=== PATIENT | female | born 1940 | race Caucasian/White ===

== ENCOUNTER → 2016-03-11 | Outpatient (CLI) | payer OTHER, BC ==
[~2016-03-11] MED LIST: ACET-1311 PO; AMOX500C3 PO; CHOL1000 PO; CLBCR15 EXT; CLTP PO; CMD3 PO; COLE625T PO; DIAZ-165 PO; EZET10TA63 PO; KRIL1CAP7 PO; LACT3000 PO; LANS30CA63 PO; MISCCAP80 PO; MULT-506 PO; PRT/20 PO; RSTOPS OP; SYN50 PO; TRAM-10 PO; WARF3TAB6 PO; [UNRECOGNIZED DRUG - CODE] TOP
[2016-03-11 13:09] LABS: INR 1.5 (0.9-1.1); PROTHROMBIN TIME (PATIENT) 16.8 SECONDS (9.0-12.0)
[2016-03-11 13:53] LABS: CHOLESTEROL/HDL RATIO 5.9; THYROID STIMULATING HORMONE 1.1 uIu/ml (0.300-4.500)
== END | disposition home or self-care (01) ==
LOC: C.LAB 12:08
PROVIDERS: ATTEND Family Medicine
DX: S32.029A Unspecified fracture of second lumbar vertebra, initial encounter for closed fracture (principal); X58.XXXA Exposure to other specified factors, initial encounter; E78.5 Hyperlipidemia, unspecified; E03.9 Hypothyroidism, unspecified; I26.99 Other pulmonary embolism without acute cor pulmonale; Z51.81 Encounter for therapeutic drug level monitoring; Z79.01 Long term (current) use of anticoagulants

== ENCOUNTER → 2016-03-26 | Outpatient (CLI) | payer BC ==
[~2016-03-26] MED LIST changes: -DIAZ-165 PO; -LANS30CA63 PO
--- NOTE | 2016-03-26 12:05 | DIAGNOSTIC IMAGING REPORT ---
LUMBAR SPINE 5 VIEWS CLINICAL HISTORY: Followup burst fracture of L2. FINDINGS: Five views of lumbar spine are correlated with CT scan of lumbar spine dated 01/16/2016. The skeletal structures are osteopenic. There is a moderate to severe compression deformity of L2 at the site of the previously characterized burst fracture. Vertebroplasty cement is in place. Retropulsed fragments are again noted and similar to previous. These are retropulsed by a maximum of 8 mm and likely cause acquired compromise of the central canal. Again seen are changes from laminectomy and posterior fusion from L1 to L3, with interpedicular screws present at both L1 and L3. The orthopedic hardware appears intact. Vertebral body height is otherwise maintained throughout the lumbar spine. The transverse processes appear intact. There is no evidence of spondylolysis. No acute fracture is identified. Facet arthropathy is noted in the lower lumbar region. Moderate degenerative disc space narrowing is seen at L4-L5 and L5-S1. The sacrum and bony pelvis are intact as visualized. Sclerotic change is noted in the sacroiliac joints. Postoperative change is partially visualized in the right proximal humerus. There is a nonobstructed abdominal bowel gas pattern. Moderate atherosclerotic calcification is noted in the abdominal aorta. A calcified structure in the right upper quadrant is consistent with calcification of the costal cartilage when correlated with prior CT scans. IMPRESSION: 1. There is a moderate to severe compression deformity of L2 at the site of the previously characterized burst fracture with evidence of interval vertebroplasty. Retropulsed fragments are similar in alignment to previous. 2. Postoperative changes from L1 to L3 spinal fusion as above. The orthopedic hardware appears intact. 3. No acute fracture is seen. 4. Additional changes as above. Dictated: 03/26/2016 11:27 AM Transcribed: 03/26/2016 12:04 PM [facility] Electronically signed by: Javier Fu M.D. 03/26/2016 12:06 PM Dictated Date/Time: 03/26/2016 11:27 AM
== END | disposition home or self-care (01) ==
LOC: C.RADBC 10:38
PROVIDERS: ATTEND Neurological Surgery
DX: S32.022D Unstable burst fracture of second lumbar vertebra, subsequent encounter for fracture with routine healing (principal); M54.16 Radiculopathy, lumbar region; X58.XXXD Exposure to other specified factors, subsequent encounter; M53.86 Other specified dorsopathies, lumbar region; Z98.1 Arthrodesis status

== ENCOUNTER → 2016-04-13 | Outpatient (CLI) | payer OTHER, BC ==
--- NOTE | 2016-04-13 11:28 | DIAGNOSTIC IMAGING REPORT ---
CT LUMBAR SPINE WITHOUT CT DOSE: 832.05 mGy.cm CLINICAL HISTORY: Unstable L2 fracture. Back pain. TECHNIQUE: Helical images were acquired in transverse plane. Reformatted sagittal and coronal images were reviewed. CONTRAST: No contrast was administered COMPARISON STUDY: None. FINDINGS: L1-2 level: There is no evidence of significant disc bulge or focal herniation. There is no evidence of spinal or foraminal stenosis. There is an L2 burst fracture with retropulsion. There are postsurgical changes of a posterior laminectomy. There is posterior pedicle screw fixation with pedicle screws at the L1 and L3 levels. L2-3 level: There is no evidence of significant disc bulge or focal herniation. There is no evidence of spinal or foraminal stenosis. L3-4 level: There is a mild circumferential disc bulge. There is minor spinal stenosis. There is no significant foraminal narrowing L4-5 level: There is a circumferential disc bulge. There is moderate spinal stenosis. There is no significant foraminal narrowing. L5-S1 level: There is no evidence of significant disc bulge or focal herniation. There is no evidence of spinal or foraminal stenosis. IMPRESSION: 1. L2 burst fracture. Since the prior CT scan, the patient has undergone a vertebroplasty. There is also postsurgical changes of an L2 laminectomy with L1 and L3 pedicle screw fixation. The degree of retropulsion and vertebral body height remain similar to the preceding study 2. Spondylitic changes with a disc bulge and moderate spinal stenosis at the L4-5 level. Electronically signed by: Nando Villatoro M.D. 04/13/2016 11:26 AM Dictated Date/Time: 04/13/2016 11:17 AM
== END | disposition home or self-care (01) ==
LOC: C.CTS 10:54
PROVIDERS: ATTEND Neurological Surgery
DX: S32.022D Unstable burst fracture of second lumbar vertebra, subsequent encounter for fracture with routine healing (principal); X58.XXXD Exposure to other specified factors, subsequent encounter; Z98.1 Arthrodesis status; M51.26 Other intervertebral disc displacement, lumbar region; M99.73 Connective tissue and disc stenosis of intervertebral foramina of lumbar region

== ENCOUNTER → 2016-04-28 | Outpatient (CLI) | payer BC ==
[2016-04-28 20:25] LABS: MANUAL MICROSCOPIC REQUIRED? YES; URINE APPEARANCE SL CLOUDY (CLEAR); URINE BILIRUBIN NEG (NEG); URINE COLOR YELLOW; URINE NITRITE NEG (NEG); URINE PH 5.5 (4.5-7.5); URINE SPECIFIC GRAVITY 1.025 (1.000-1.030); UROBILINOGEN NEG (NEG)
[2016-04-28 20:31] LABS: REVIEW REQ? NO
[2016-04-28 20:42] LABS: URINE BACTERIA 4+ (NEG)
[2016-04-28 20:43] LABS: URINE RBC 0-4 /hpf (0-4)
== END | disposition home or self-care (01) ==
LOC: C.LABSPEC 17:32
PROVIDERS: ATTEND Family Medicine
DX: N39.0 Urinary tract infection, site not specified (principal)

== ENCOUNTER → 2016-05-07 | Outpatient (CLI) | payer BC ==
[2016-05-10 15:40] LABS: O&P GIARDIA AG NOT DETECTED (NOT DETECTED)
== END | disposition home or self-care (01) ==
LOC: C.LAB 12:44
PROVIDERS: ATTEND Family Medicine
DX: R19.7 Diarrhea, unspecified (principal)

== ENCOUNTER → 2016-05-20 | Outpatient (CLI) | payer BC ==
--- NOTE | 2016-05-20 16:28 | MAMMOGRAPHY REPORT ---
BILATERAL DIGITAL SCREENING MAMMOGRAM WITH CAD: 05/20/2016 CLINICAL HISTORY: Routine screening. Patient has no complaints. TECHNIQUE: Current study was also evaluated with a Computer Aided Detection (CAD) system. Bilatera l CC and MLO views were obtained. COMPARISON: Comparison is made to exams dated: 05/20/2015 mammogram, 05/14/2014 mammogram, 04/24/2013 m ammogram, 03/23/2012 mammogram, 03/22/2011 mammogram, and 03/19/2010 mammogram - [facility]. BREAST COMPOSITION: There are scattered areas of fibroglandular density in both breasts. FINDINGS: No suspicious masses, calcifications, or areas of architectural distortion are noted in e ither breast. There has been no significant interval change compared to prior exams. Biopsy marker clips are again noted bilaterally. Scattered bilateral benign-appearing calcifications and bilatera l asymmetries are not significantly changed. Note that the right MLO view is somewhat suboptimal du e to difficulties with patient positioning due to a prior shoulder surgery. IMPRESSION: ACR BI-RADS CATEGORY 2: BENIGN There is no mammographic evidence of malignancy. A 1 year screening mammogram is recommended. The p atient will receive written notification of the results. Approximately 10% of breast cancers are not detected with mammography. A negative mammographic repor t should not delay biopsy if a clinically suggestive mass is present. Cassy Valle M.D. ah/:05/20/2016 16:14:21 Operations And Maintenance Manager: Anahi Guthrie RT(R)(M), [facility] letter sent: Normal 1/2 BI-RADS Code: ACR BI-RADS Category 2: Benign
== END | disposition home or self-care (01) ==
LOC: C.MAMM 11:42
PROVIDERS: ATTEND Family Medicine
DX: Z12.31 Encounter for screening mammogram for malignant neoplasm of breast (principal); Z51.81 Encounter for therapeutic drug level monitoring; Z79.01 Long term (current) use of anticoagulants; I26.99 Other pulmonary embolism without acute cor pulmonale

== ENCOUNTER → 2016-06-17 | Outpatient (CLI) | payer BC | END | disposition home or self-care (01) | LOC: C.LAB 10:31 | PROVIDERS: ATTEND Family Medicine | DX: E03.9 Hypothyroidism, unspecified (principal); L65.9 Nonscarring hair loss, unspecified ==

== ENCOUNTER → 2016-11-01 | Outpatient (CLI) | payer BC | END | disposition home or self-care (01) | LOC: C.PATHSPEC 17:46 | PROVIDERS: ATTEND Dermatology | DX: L82.1 Other seborrheic keratosis (principal) ==

== ENCOUNTER → 2017-06-28 | Outpatient (CLI) | payer BC ==
--- NOTE | 2017-06-29 14:21 | MAMMOGRAPHY REPORT ---
BILATERAL DIGITAL SCREENING MAMMOGRAM TOMOSYNTHESIS WITH CAD: 06/28/2017 CLINICAL HISTORY: Routine screening. Patient has no complaints. TECHNIQUE: Breast tomosynthesis in addition to standard 2D mammography was performed. Current study was also evaluated with a Computer Aided Detection (CAD) system. COMPARISON: Comparison is made to exams dated: 05/20/2016 mammogram, 05/20/2015 mammogram, 05/14/2014 ma mmogram, 04/24/2013 mammogram, 03/23/2012 mammogram, and 03/22/2011 mammogram - [facility]. BREAST COMPOSITION: There are scattered areas of fibroglandular density in both breasts. FINDINGS: There is evidence of prior bilateral reduction mammoplasty. There are stable ribbon-shaped biopsy marker clips in each breast. A stable focal asymmetries in the superior left breast. Chao us scattered benign rim calcifications and mild vascular calcification bilaterally. No new suspiciou s mass, architectural distortion or cluster of microcalcifications is seen. IMPRESSION: ACR BI-RADS CATEGORY 1: NEGATIVE There is no mammographic evidence of malignancy. A 1 year screening mammogram is recommended. The pa tient will receive written notification of the results. Approximately 10% of breast cancers are not detected with mammography. A negative mammographic report should not delay biopsy if a clinically suggestive mass is present. Tatyana Cameron M.D. ay/:06/28/2017 14:05:44 Wood Molder: Paige RANGEL)(Saul), [facility] letter sent: Normal 1/2 BI-RADS Code: ACR BI-RADS Category 1: Negative
== END | disposition home or self-care (01) ==
LOC: C.MAMM 11:02
PROVIDERS: ATTEND Family Medicine
DX: Z12.31 Encounter for screening mammogram for malignant neoplasm of breast (principal)

== ENCOUNTER 2020-09-05 09:02 | Inpatient (IN) ==
--- NOTE | 2020-09-05 09:59 | Electrocardiogram Report ---
Test Reason : Blood Pressure : / mmHG Vent. Rate : 062 BPM Atrial Rate : 062 BPM P-R Int : 170 ms QRS Dur : 136 ms QT Int : 442 ms P-R-T Axes : 045 -70 091 degrees QTc Int : 448 ms Sinus rhythm with marked sinus arrhythmia Left axis deviation Left ventricular hypertrophy with QRS widening Abnormal ECG When compared with ECG of 28-APR-2015 07:11, No significant change was found Confirmed by Heber Zurita ([id number]) on 09/05/2020 9:58:53 AM Referred By: Confirmed By:Heber Zurita
[2020-09-05 10:04] LABS: Hemoglobin 13.4 g/dL (12.0-16.0); Mean Corpuscular Hemoglobin 28.2 pg (25-34); Mean Corpuscular Hgb Conc 32.7 g/dL (32-36); Mean Corpuscular Volume 86.3 fL (80-100); Mean Platelet Volume 8.8 fL (7.4-10.4); Platelet Count 148 K/uL (130-400); RDW Coefficient of Variation 14.7 % (11.5-14.5); RDW Standard Deviation 46.2 fL (36.4-46.3); Red Blood Count 4.75 M/uL (4.2-5.4); White Blood Count 34.43 K/uL (4.8-10.8)
[2020-09-05 10:22] LABS: Albumin Level 3.7 gm/dl (3.4-5.0); BUN Creatinine Ratio 15.9 (10-20); Calcium 9.2 mg/dl (8.5-10.1); Creatinine Clr Calc Pharmacy 44.5 ml/min; Est GFR (African American) 63.1 ml/min; Est GFR (Non-African American) 54.5 ml/min
[2020-09-05 10:23] LABS: INR 2.1 (0.9-1.1); Partial Thromboplastin Ratio 1.2; Partial Thromboplastin Time 30.5 Seconds (21.0-31.0)
[2020-09-05 10:41] LABS: Basophils % (auto) 0.6 %; Eosinophils # (auto) 0.09 K/uL (0-0.5); Eosinophils % (auto) 0.3 %; Immature Granulocytes # (auto) 0.05 K/uL (0.00-0.02); Immature Granulocytes % (auto) 0.1 %; Lymphocytes # (auto) 27.85 K/uL (1.2-3.4); Lymphocytes % (auto) 80.9 %; Monocytes % (auto) 3.2 %; Neutrophils # (auto) 5.14 K/uL (1.4-6.5); Neutrophils % (auto) 14.9 %; Ovalocytes 1+; Smudge Cells Present
[2020-09-05 10:42] LABS: Albumin Globulin Ratio 1.1 (0.9-2); Bilirubin,Total 0.5 mg/dl (0.2-1); Globulin 3.2 gm/dl (2.5-4.0); Total Protein 6.9 gm/dl (6.4-8.2); Troponin I 0.077 ng/ml (0-0.045)
--- NOTE | 2020-09-05 10:57 | XRay Report ---
XR chest 1V portable CLINICAL HISTORY: Chest Pain COMPARISON STUDY: Chest CT December 06, 2017. FINDINGS: Lung volumes are normal. Lungs are clear. There is no pneumothorax or pleural effusion. Car diac size is normal. Mediastinal contours are normal. There is no evidence for pulmonary edema. Proxi mal right humeral internal fixation is incidentally noted. IMPRESSION: No acute cardiopulmonary findings. ACT 112: Negative or not required by law. Electronically signed by: Rikki Clifton M.D. 09/05/2020 10:55 AM
--- NOTE | 2020-09-05 11:12 | Emergency Department Note ---
History of Present Illness General Chief complaint: Chest Pain Stated complaint: CHEST PAIN, BACK PAIN, WEAKNESS Time Seen by Provider: 09/05/20 10:48 Source: patient and family ( who is at the bedside) Mode of arrival: ambulatory Limitations: no limitations History of Present Illness Maximum Pain Intensity: 5 This patient is a 79-year-old female comes in after having chest discomfort. She has been having this for about 3 days. She said she started off with a diarrheal illness but that is resolved. She states that is mostly right-sided but now is more central she has been belching a lot. They did switch her dosing of GERD meds around. Since about 3 in the morning its been more constant and does radiate to her back she has been taking Tums which was helping but now is not. She denies that she is really have any pain at present but says is just a mild discomfort and declined any medications for it. No pain in the arm. No shortness of breath. No pleurisy. No fever chills or cough she did have the Covid vaccine x2. No lower extremity pain or swelling with exception of a recent left ankle surgery/injury that she has a splint on for. No history of cardiac disease. She does have a history of CLL as well as PE. Home Medications Medication Instructions Recorded Confirmed Type calcium carbonate 600 mg(1,500 1 tab PO BID17 11/01/17 09/05/20 History mg)-vitamin D3 800 unit chewable tablet (Caltrate 600 plus D) hydrochlorothiazide 12.5 mg tablet 12.5 mg PO QAM 09/04/19 09/05/20 History olmesartan 5 mg tablet (Benicar) 10 mg PO DAILY@1500 tab 05/08/20 09/05/20 History hydroxychloroquine 200 mg tablet 200 mg PO DAILY@1500 06/16/20 09/05/20 History (Plaquenil) omega-3 fatty acids 1,000 mg 2,000 mg PO BID cap 08/27/20 09/05/20 History capsule (Fish Oil Concentrate) colesevelam 625 mg tablet (WelChol) 1,250 mg PO DAILY@1500 09/05/20 09/05/20 History cyclosporine 0.05 % eye drops in a 1 drp OPB BID 09/05/20 09/05/20 History dropperette (Restasis) diclofenac sodium 1 % topical gel 2 g TOPICAL QID PRN 09/05/20 09/05/20 History (Voltaren Arthritis Pain) levothyroxine 50 mcg tablet 50 mcg PO QDB 09/05/20 09/05/20 History (Levoxyl) pantoprazole 20 mg tablet,delayed 20 mg PO QDB 09/05/20 09/05/20 History release (Protonix) warfarin 3 mg tablet (Jantoven) See Rx Instructions PO UD 09/05/20 09/05/20 History Allergies Allergy/AdvReac Type Severity Reaction Status Date / Time niacin Allergy Intermediate SHORTNESS Verified 09/05/20 11:44 OF BREATH adhesive Allergy Mild ITCHING Verified 09/05/20 11:44 aspirin Allergy Unknown stomach raw Verified 09/05/20 11:44 Sulfa (Sulfonamide Allergy Unknown . Verified 09/05/20 11:44 Antibiotics) lactose AdvReac Unknown LACTOSE Verified 09/05/20 11:44 INTOLERANT oxycodone AdvReac Unknown vomiting Verified 09/05/20 11:44 Past Med/Surg History Medical History Acne rosacea, erythematous telangiectatic type Chronic lymphocytic leukemia History of pulmonary embolism History of vertebral fracture Hyperlipidemia Hypothyroidism Psoriasiform dermatitis Pulmonary embolism on right Surgical History H/O arthroscopic knee surgery H/O bilateral breast reduction surgery H/O knee surgery H/O shoulder surgery "R rotator cuff" History of cholecystectomy History of partial hysterectomy History of tonsillectomy History of ventral hernia repair Hx of cataract surgery Hx of tonsillectomy Hx of total knee arthroplasty "bilateral Dr. Aguilar" S/P wrist surgery Family History Mother Gallbladder disease Cardiac disorder Hypertension Kidney disease Kidney stones Lung disease Father Gallbladder disease Hypertension Cardiac disorder Kidney disease Prostate cancer Urinary bladder cancer Diabetes Myocardial infarction Sister Gallbladder disease Hypertension Diabetes Depression Brother Cardiac disorder Hypertension Myocardial infarction Son Hypertension Grandmother Breast cancer Denies family history of Ovarian cancer Colorectal cancer Social History Smoking Status: Never smoker Hx Alcohol Use: Yes Alcohol type: beer and wine Alcohol Intake Frequency: Monthly or Less Hx Substance Use: No Preferred Language: Turkish Communication Ability: Effective Visual Impairment: No Limitations Hearing Ability: Normal marital status: Current Living Situation: Spouse current occupational status: retired Feels Safe at Home: Yes Childhood Exposure to Second-Hand Smoke: Yes Dental Care, Regularly: Yes Physical Activity Frequency: Does not Exercise Seatbelt Use: always Sunscreen Use: No Review of Systems A total of 10 systems reviewed and were otherwise negative Physical Exam Vital Signs Vital Signs - 24 hr 09/05/20 09:05 09/05/20 10:39 09/05/20 11:02 Temperature 36.4 C L Temperature Source Temporal Artery Scan Pulse Rate 63 65 Pulse Rate from SpO2 Sensor 64 Respiratory Rate 22 18 Respiratory Effort / Characteristics Non-Labored Respiratory Depth Normal Respiratory Pattern Regular Blood Pressure 142/68 H 161/86 H Blood Pressure Mean 92 111 Pulse Oximetry 97 95 Oxygen Delivery Method Room Air Room Air Sepsis Recent Fever Within 48 Hours No Sepsis New/Unexplained Change in Mental Status No Sepsis Action Taken by Nursing No Action Required 09/05/20 11:04 09/05/20 12:40 09/05/20 13:00 Temperature Temperature Source Pulse Rate 60 64 Pulse Rate from SpO2 Sensor 60 61 Respiratory Rate 19 22 Respiratory Effort / Characteristics Respiratory Depth Respiratory Pattern Blood Pressure 182/97 H 166/66 H Blood Pressure Mean 125 99 Pulse Oximetry 99 98 Oxygen Delivery Method Room Air Sepsis Recent Fever Within 48 Hours Sepsis New/Unexplained Change in Mental Status Sepsis Action Taken by Nursing 09/05/20 13:31 09/05/20 14:02 09/05/20 14:30 Temperature Temperature Source Pulse Rate 58 L 52 L 68 Pulse Rate from SpO2 Sensor 56 L 52 L 59 L Respiratory Rate 19 20 18 Respiratory Effort / Characteristics Respiratory Depth Respiratory Pattern Blood Pressure 155/81 H Blood Pressure Mean 105 Pulse Oximetry 97 96 92 Oxygen Delivery Method Sepsis Recent Fever Within 48 Hours Sepsis New/Unexplained Change in Mental Status Sepsis Action Taken by Nursing General: Well developed well nourished older female who appears in no acute distress, breathing comfortably on room air. Normal speech HEENT: Normal cephalic atraumatic. Pupils are equal round and reactive to light. Extraocular movements are intact. Oropharynx is pink with moist mucous membranes. No swelling of the mouth lips or tongue. Neck: Supple with a midline trachea. No meningeal signs or stiffness, no JVD or bruits. No Stridor. Chest: Clear to auscultation bilaterally. No wheezes or rhonchi. No increased work of breathing. Heart: Regular rate and rhythm without murmurs or gallops. Abdomen: Soft nontender, nondistended without rebound guarding or rigidity. Extremities: No cyanosis clubbing or edema. No calf tenderness or assymetry Spine/Back. Non tender to palpation. No CVA tenderness Skin: Good turgor without rashes. Neurologic exam: Cranial nerves two through 12 are intact. Motor and sensation are intact and symmetrical throughout. Course Administered Medications Discontinued Medications Al Hydrox/Mg Hydrox/Simethicone (Gi Cocktail Ed Use) 1 dose PO NOW STA Stop: 09/05/20 12:06 Last Admin: 09/05/20 12:41 Dose: 1 dose Documented by: [id number] Fentanyl Citrate (Fentanyl Citrate 100 Mcg/2 Ml Vial) Confirm Administered Dose 100 mcg .ROUTE .STK-MED ONE Stop: 09/05/20 14:38 Last Admin: 09/05/20 16:08 Dose: 50 mcg Documented by: [id number] Heparin Sodium (Porcine) (Heparin (Porcine) 1000 Unit/Ml 10 Ml ([facility] Use Only)) Confirm Administered Dose 10,000 units .ROUTE .STK-MED ONE Stop: 09/05/20 14:38 Last Admin: 09/05/20 16:08 Dose: 9,000 units Documented by: [id number] Heparin Sodium/Sodium Chloride (Heparin In Nss Infusion 1000 Unit/500 Ml (2 U/Ml) Bag) Confirm Administered Dose 3,000 units IV .STK-MED ONE Stop: 09/05/20 14:38 Last Admin: 09/05/20 16:09 Dose: 3,000 units Documented by: [id number] Hydrochlorothiazide (Hydrochlorothiazide 25 Mg Tab) 12.5 mg PO NOW STA Stop: 09/05/20 11:59 Last Admin: 09/05/20 12:47 Dose: 12.5 mg Documented by: [id number] Ioversol (Optiray 320 125ml) 120 ml IV ONCE ONE Stop: 09/05/20 11:25 Last Admin: 09/05/20 11:24 Dose: 120 ml Documented by: [id number] Midazolam HCl (Midazolam Hcl 1 Mg/Ml 2ml Vial) Confirm Administered Dose 2 mg .ROUTE .STK-MED ONE Stop: 09/05/20 14:38 Last Admin: 09/05/20 16:09 Dose: 2 mg Documented by: [id number] Nicardipine HCl (Nicardipine Hcl Inj 2.5 Mg/Ml 10 Ml Amp) Confirm Administered Dose 25 mg .ROUTE .STK-MED ONE Stop: 09/05/20 14:38 Last Admin: 09/05/20 16:09 Dose: 0.1 mg Documented by: [id number] Nitroglycerin/Dextrose (Nitroglycerin/D5w 100mcg/Ml 20ml Syr) Confirm Administered Dose 2,000 mcg .ROUTE .STK-MED ONE Stop: 09/05/20 14:38 Last Admin: 09/05/20 16:10 Dose: 100 mcg Documented by: [id number] Medical Decision Making Differential Diagnosis Acute coronary syndrome, GERD, PE, aortic pathology, arrhythmia, Covid, electrolyte or metabolic abnormality, musculoskeletal Medical Records Attestation: I reviewed the patient's medical records. Home Medications Current Medication List: was personally reviewed by me Laboratory Data Attestation: I reviewed the patient's lab results. Result diagrams: 09/05/20 09:52 09/05/20 09:52 Lab Results 09/05/20 09/05/20 09/05/20 Range/Units 09:52 09:52 09:52 WBC 34.43 H* (4.8-10.8) K/uL RBC 4.75 (4.2-5.4) M/uL Hgb 13.4 (12.0-16.0) g/dL Hct 41.0 (37-47) % MCV 86.3 (80-100) fL MCH 28.2 (25-34) pg MCHC 32.7 (32-36) g/dL RDW Std Deviation 46.2 (36.4-46.3) fL RDW Coeff of Rose 14.7 H (11.5-14.5) % Plt Count 148 (130-400) K/uL MPV 8.8 (7.4-10.4) fL Immature Gran % (Auto) 0.1 % Neut % (Auto) 14.9 % Lymph % (Auto) 80.9 % Orange % (Auto) 3.2 % Eos % (Auto) 0.3 % Baso % (Auto) 0.6 % Neut # (Auto) 5.14 (1.4-6.5) K/uL Lymph # (Auto) 27.85 H (1.2-3.4) K/uL Orange # (Auto) 1.10 H (0.11-0.59) K/uL Eos # (Auto) 0.09 (0-0.5) K/uL Baso # (Auto) 0.20 (0-0.2) K/uL Immature Gran # (Auto) 0.05 H (0.00-0.02) K/uL Smudge Cells Present Ovalocytes 1+ PT 20.0 H (9.0-12.0) Seconds INR 2.1 H (0.9-1.1) APTT 30.5 (21.0-31.0) Seconds PTT Ratio 1.2 Activ Coag Time Kaolin (94-140) SECONDS Sodium 140 (136-145) mmol/L Potassium 4.0 (3.5-5.1) mmol/L Chloride 108 H (98-107) mmol/L Carbon Dioxide 27 (21-32) mmol/L Anion Gap 5.0 (3-11) BUN 16 (7-18) mg/dl Creatinine 0.98 (0.6-1.2) mg/dl Est Cr Clr Drug Dosing 44.5 ml/min Est GFR ( Amer) 63.1 ml/min Est GFR (Non-Af Amer) 54.5 ml/min BUN/Creatinine Ratio 15.9 (10-20) Glucose 120 H (70-99) mg/dl Calcium 9.2 (8.5-10.1) mg/dl Total Bilirubin 0.5 (0.2-1) mg/dl AST 23 (15-37) U/L ALT 36 (12-78) U/L Alkaline Phosphatase 60 (45-117) U/L Troponin I 0.077 H* (0-0.045) ng/ml Total Protein 6.9 (6.4-8.2) gm/dl Albumin 3.7 (3.4-5.0) gm/dl Globulin 3.2 (2.5-4.0) gm/dl Albumin/Globulin Ratio 1.1 (0.9-2) Lipase (73-393) U/L COVID-19 Eval Order SARS-CoV-2 (PCR) (Negative) 09/05/20 09/05/20 09/05/20 Range/Units 09:52 12:22 12:22 WBC (4.8-10.8) K/uL RBC (4.2-5.4) M/uL Hgb (12.0-16.0) g/dL Hct (37-47) % MCV (80-100) fL MCH (25-34) pg MCHC (32-36) g/dL RDW Std Deviation (36.4-46.3) fL RDW Coeff of Rose (11.5-14.5) % Plt Count (130-400) K/uL MPV (7.4-10.4) fL Immature Gran % (Auto) % Neut % (Auto) % Lymph % (Auto) % Orange % (Auto) % Eos % (Auto) % Baso % (Auto) % Neut # (Auto) (1.4-6.5) K/uL Lymph # (Auto) (1.2-3.4) K/uL Orange # (Auto) (0.11-0.59) K/uL Eos # (Auto) (0-0.5) K/uL Baso # (Auto) (0-0.2) K/uL Immature Gran # (Auto) (0.00-0.02) K/uL Smudge Cells Ovalocytes PT (9.0-12.0) Seconds INR (0.9-1.1) APTT (21.0-31.0) Seconds PTT Ratio Activ Coag Time Kaolin (94-140) SECONDS Sodium (136-145) mmol/L Potassium (3.5-5.1) mmol/L Chloride (98-107) mmol/L Carbon Dioxide (21-32) mmol/L Anion Gap (3-11) BUN (7-18) mg/dl Creatinine (0.6-1.2) mg/dl Est Cr Clr Drug Dosing ml/min Est GFR ( Amer) ml/min Est GFR (Non-Af Amer) ml/min BUN/Creatinine Ratio (10-20) Glucose (70-99) mg/dl Calcium (8.5-10.1) mg/dl Total Bilirubin (0.2-1) mg/dl AST (15-37) U/L ALT (12-78) U/L Alkaline Phosphatase (45-117) U/L Troponin I (0-0.045) ng/ml Total Protein (6.4-8.2) gm/dl Albumin (3.4-5.0) gm/dl Globulin (2.5-4.0) gm/dl Albumin/Globulin Ratio (0.9-2) Lipase 145 (73-393) U/L COVID-19 Eval Order Covid19 at [facility] SARS-CoV-2 (PCR) NEGATIVE (Negative) 09/05/20 09/05/20 Range/Units 13:10 16:01 WBC (4.8-10.8) K/uL RBC (4.2-5.4) M/uL Hgb (12.0-16.0) g/dL Hct (37-47) % MCV (80-100) fL MCH (25-34) pg MCHC (32-36) g/dL RDW Std Deviation (36.4-46.3) fL RDW Coeff of Rose (11.5-14.5) % Plt Count (130-400) K/uL MPV (7.4-10.4) fL Immature Gran % (Auto) % Neut % (Auto) % Lymph % (Auto) % Orange % (Auto) % Eos % (Auto) % Baso % (Auto) % Neut # (Auto) (1.4-6.5) K/uL Lymph # (Auto) (1.2-3.4) K/uL Orange # (Auto) (0.11-0.59) K/uL Eos # (Auto) (0-0.5) K/uL Baso # (Auto) (0-0.2) K/uL Immature Gran # (Auto) (0.00-0.02) K/uL Smudge Cells Ovalocytes PT (9.0-12.0) Seconds INR (0.9-1.1) APTT (21.0-31.0) Seconds PTT Ratio Activ Coag Time Kaolin 279 H (94-140) SECONDS Sodium (136-145) mmol/L Potassium (3.5-5.1) mmol/L Chloride (98-107) mmol/L Carbon Dioxide (21-32) mmol/L Anion Gap (3-11) BUN (7-18) mg/dl Creatinine (0.6-1.2) mg/dl Est Cr Clr Drug Dosing ml/min Est GFR ( Amer) ml/min Est GFR (Non-Af Amer) ml/min BUN/Creatinine Ratio (10-20) Glucose (70-99) mg/dl Calcium (8.5-10.1) mg/dl Total Bilirubin (0.2-1) mg/dl AST (15-37) U/L ALT (12-78) U/L Alkaline Phosphatase (45-117) U/L Troponin I 0.494 H* (0-0.045) ng/ml Total Protein (6.4-8.2) gm/dl Albumin (3.4-5.0) gm/dl Globulin (2.5-4.0) gm/dl Albumin/Globulin Ratio (0.9-2) Lipase (73-393) U/L COVID-19 Eval Order SARS-CoV-2 (PCR) (Negative) Imaging Data Attestation: I personally reviewed and interpreted this imaging study as follows: My Impression: Chest x-rayno acute infiltrate, failure, pneumothorax seen upon my evaluation Radiologist's Impression: Chest X-Ray 09/05/20 09:32 XR chest 1V portable CLINICAL HISTORY: Chest Pain COMPARISON STUDY: Chest CT December 06, 2017. FINDINGS: Lung volumes are normal. Lungs are clear. There is no pneumothorax or pleural effusion. Cardiac size is normal. Mediastinal contours are normal. There is no evidence for pulmonary edema. Proximal right humeral internal fixation is incidentally noted. IMPRESSION: No acute cardiopulmonary findings. ACT 112: Negative or not required by law. Electronically signed by: Rikki Clifton M.D. 09/05/2020 10:55 AM Chest CTA 09/05/20 11:04 CT ANGIOGRAPHY OF THE CHEST, PULMONARY EMBOLUS PROTOCOL CLINICAL HISTORY: Worsening chest pain. Evaluate for pulmonary embolus. COMPARISON STUDY: Chest CT December 06, 2017. Chest radiograph performed earlier today. TECHNIQUE: Following IV administration of 120 mL of Optiray, helical axial images of the chest were obtained utilizing the pulmonary embolus protocol. Maximal intensity projections and sagittal and coronal reformats were viewed on an independent 3D workstation. IV contrast was administered without complication. Automated exposure control was utilized for the study. A dose lowering technique was utilized adhering to the principles of ALARA. CT DOSE: 604.35 mGy.cm FINDINGS: No pulmonary emboli are identified. Cardiomegaly is noted. There is no pericardial effusion. No pneumothorax or pleural effusion is noted. A 5 mm subpleural right middle lobe nodule is unchanged and CT of December 06, 2017. This is benign given stability. Groundglass opacities reflect atelectasis. There is no consolidation to suggest pneumonia. L1 kyphoplasty is partially imaged. No thoracic lymphadenopathy is present. IMPRESSION: 1. No pulmonary emboli identified. 2. No acute process within the chest. 3. Cardiomegaly. Moderate coronary artery calcification. ACT 112: Negative or not required by law. Electronically signed by: Rikki Clifton M.D. 09/05/2020 11:45 AM ECG Data Attestation: I personally reviewed and interpreted this ECG as follows: Indication: + chest pain Rate (beats per minute): 62 Rhythm: + sinus with SA ECG Intervals/blocks: + Normal QRS, + Normal QT and + Normal MN ECG [place]: + Left axis deviation ECG ST segments: + Normal ST segments ECG Findings: no PACs or no PVCs Comparison ECG Date: from (04/28/15) Change: no significant change MDM Narrative This patient comes in as described above. She was placed on a cardiac sonographer in room B3. She has been having chest pain. She looks well at present. EKG shows no change compared to old and no ischemic changes. Her troponin did come back mildly elevated. She does have a history of PE/DVT as well so I did order a CTA of the chest. Her INR is 2.1. She is nursing of electrolyte or metabolic abnormality. Her white count was elevated however she does have CLL and typically has an elevated white count. She has no fever or anything to suggest infection. She initially did deny any significant pain I did offer her medications but she declined. She tells me she cannot take aspirin and had troubles with bleeding when she was on it was told not to take it. I did a CTA of the chest there is no evidence of PE. I do think she needs to be admitted/observed to have further work-up for chest pain. She was seen by the [facility] hospitalist group in the ER and they did order additional troponin and it was further up and they are going to take her to the [facility]. Continuous cardiac monitoring: Orders placed in EMR for continuous cardiac monitoring. Upon my evaluation/interpretation she was noted to be in normal sinus rhythm with a rate of 70. Impression & Plan Chest pain, Chronic lymphocytic leukemia, Elevated troponin, History of pulmonary embolism Discharge Plan Visit Data Chief Complaint: Chest Pain Stated Complaint: CHEST PAIN, BACK PAIN, WEAKNESS ED Provider: Abad Olivas Discharge Problem: Chest pain, Chronic lymphocytic leukemia, Elevated troponin, History of pulmonary embolism Patient Disposition: Admitted As Inpatient Discharge Instructions Interventions: ED Discharge Assessment Last Done: 09/05/20 14:58 Forms Stand Alone Forms: [email or web address] [email or web address] / [employer] Prescriptions Prescriptions: No Action Caltrate 600 plus D 600 mg (1,500 mg)-800 unit Tablet,Chewable 1 tab PO BID17 RF: 0 olmesartan [Benicar] 5 mg tablet 10 mg PO DAILY@1500 RF: 0 hydroxychloroquine [Plaquenil] 200 mg tablet 200 mg PO DAILY@1500 RF: 0 hydrochlorothiazide 12.5 mg tablet 12.5 mg PO QAM RF: 0 omega-3 fatty acids [Fish Oil Concentrate] 1,000 mg capsule 2,000 mg PO BID RF: 0 diclofenac sodium [Voltaren Arthritis Pain] 1 % gel 2 g TOPICAL QID PRN (Reason: Pain) RF: 0 warfarin [Jantoven] 3 mg tablet See Rx Instructions PO UD RF: 0 pantoprazole [Protonix] 20 mg tablet,delayed release (DR/EC) 20 mg PO QDB RF: 0 colesevelam [WelChol] 625 mg tablet 1,250 mg PO DAILY@1500 RF: 0 levothyroxine [Levoxyl] 50 mcg tablet 50 mcg PO QDB RF: 0 Restasis 0.05 % dropperette 1 drp OPB BID RF: 0 Referrals Referrals: Lesley Hui MD [Primary Care Provider] -
[2020-09-05] MEDS ORDERED: OPTIRAY 320 125ml IV ONE (11:24)
--- NOTE | 2020-09-05 11:47 | CT Scan Report ---
CT ANGIOGRAPHY OF THE CHEST, PULMONARY EMBOLUS PROTOCOL CLINICAL HISTORY: Worsening chest pain. Evaluate for pulmonary embolus. COMPARISON STUDY: Chest CT December 06, 2017. Chest radiograph performed earlier today. TECHNIQUE: Following IV administration of 120 mL of Optiray, helical axial images of the chest were o btained utilizing the pulmonary embolus protocol. Maximal intensity projections and sagittal and cor onal reformats were viewed on an independent 3D workstation. IV contrast was administered without co mplication. Automated exposure control was utilized for the study. A dose lowering technique was ut ilized adhering to the principles of ALARA. CT DOSE: 604.35 mGy.cm FINDINGS: No pulmonary emboli are identified. Cardiomegaly is noted. There is no pericardial effusio n. No pneumothorax or pleural effusion is noted. A 5 mm subpleural right middle lobe nodule is unchan ged and CT of December 06, 2017. This is benign given stability. Groundglass opacities reflect atelect asis. There is no consolidation to suggest pneumonia. L1 kyphoplasty is partially imaged. No thoracic lymphadenopathy is present. IMPRESSION: 1. No pulmonary emboli identified. 2. No acute process within the chest. 3. Cardiomegaly. Moderate coronary artery calcification. ACT 112: Negative or not required by law. Electronically signed by: Rikki Clifton M.D. 09/05/2020 11:45 AM
[2020-09-05] MEDS ORDERED: hydroCHLOROthiazide 25 MG TAB PO STA (11:58)
[2020-09-05] MEDS ORDERED: ALUMINUM/MAGNESIUM SUSP 18 ML, LIDOCAINE VISCOUS 2% SOLN 6 ML, BARCODE IDENTIFIER 1 EA PO ONE (11:58)
[2020-09-05] MEDS ORDERED: GI COCKTAIL ED USE PO STA (12:05)
--- NOTE | 2020-09-05 12:35 | History & Physical Report ---
Date of Service September 05, 2020 Assessment & Plan (1) Chest pain: Plan: Cardiac Vs. GI - Normal stress ECHO last year - no known CAD - ECG without acute changes at this time - Still with vague pain at rest and exertion - Trend Troponin - GI cocktail x1 now- relieved her anterior chest pain and posterior shoulder pain - If troponin continues to increase- would likely need cath with symptoms (2) Elevated troponin I level: Plan: Troponin at 0900 0.077- recheck now at 3 hour stanislav increased for likely NSTEMI - Trend troponin - 3 day history of chest pain- with progressive fatigue and unwell feeling - Troponin 0.07 to 0.494 at 3 hour stanislav- NSTEMI likely - Discussed case with Dr. Mitchell and Dr. De La Torre after 2nd troponin and symptomatology- - Dr. 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 - Follow post cath recommendations (3) Hypertension: Plan: Normally well controlled as outpatient- on HCTZ and Olmesartan - HTN in EMD - patient is anxious and also did not take morning medications - HCTZ now- Olmesartan when to the floor - follow with troponin level- may need to lower more aggressively (4) Chronic lymphocytic leukemia: Plan: WBC 34.43- baseline 20-28 up-trending over the past 2 years - lymph predominance as expected (5) Hypothyroidism: Plan: Continue synthroid - no acute issues (6) Dyslipidemia: Plan: Continue WelCHOL Lipid panel- Tri: 213; Chol 259; LDL 172; HDL 44 (7) Statin intolerance: Plan: Continue her WelCHOl (8) GERD (gastroesophageal reflux disease): Plan: On protonix as outapatient - follows [facility] for chronic abdominal pain - GI cocktail x1 now and continue daily Protonix (9) Erosive (osteo)arthritis: Plan: Continue Plaquenil (10) History of DVT (deep vein thrombosis): Plan: DVT/PE- continue Coumadin - INR 2.1 - CTA of the chest negative for PE History of Present Illness Primary Care Provider: Lesley Hui MD 79 YOF with past medical history of: GERD, HTN, HLD, Hypothyoridism, PE (2015), DVT(2014(on Coumadin), CLL, Erosive arthritis (on plaquenil), OA, . Patient comes to the emergency room for complaints of chest pain for 3 days. The patient states that the pain started on Tuesday evening and originally felt like a burning pain. This was located on the right side of her chest. This was not associated with any other symptoms. However, as the days progressed the pain has moved to her left side of her chest and into her back above her shoulder blades. This has also progressed with her feeling more fatigued and "not right". She denies any nausea or vomiting, dizziness, or palpitations. This pain she is currently having comes in waves. She also went to for a walk last night with her for 2 blocks and when she came back she had some cold sweats and as above fatigue and not feeling well. She had some discomfort prior to and after CT scan and currently feels it gone. In the ER she She had routine labs drawn to include a Troponin I level, ECG, and CTA of the chest. Her ECG has no acute dynamic changes to it (last one available for review is 2015), Troponin I was 0.077, CTA of the chest did not reveal pulmonary embolism or dissection. Patient will be observed to further evaluate her CP with ECG and Troponin I. She normally follows with Dr. Mitchell for her director of patient financial services, he has been consulted. Patient has been evaluated with ECHO and stress test in 2019 for dyspnea- Her excercise capacity at that time was reported as 40% GREATER than most persons her age. ECHO was negative for ischemia(10/2019) with EF 65-70% type I diastolic dysfunction, no evidence of heart disease or pulmonary hypertension (june 2019). She remains on Coumadin for her VTE and PE, she is intolerance to statins and Zetia, and her BP is normally well controlled. She endorses an allergy to Aspirin stomach upset. She has received her COVID vaccine and her COVID test today is Allergies Allergy/AdvReac Type Severity Reaction Status Date / Time niacin Allergy Intermediate SHORTNESS Verified 09/05/20 11:44 OF BREATH adhesive Allergy Mild ITCHING Verified 09/05/20 11:44 aspirin Allergy Unknown stomach raw Verified 09/05/20 11:44 Sulfa (Sulfonamide Allergy Unknown . Verified 09/05/20 11:44 Antibiotics) lactose AdvReac Unknown LACTOSE Verified 09/05/20 11:44 INTOLERANT oxycodone AdvReac Unknown vomiting Verified 09/05/20 11:44 Home Medications Medication Instructions Recorded Confirmed Type calcium carbonate 600 mg(1,500 1 tab PO BID17 11/01/17 09/05/20 History mg)-vitamin D3 800 unit chewable tablet (Caltrate 600 plus D) hydrochlorothiazide 12.5 mg tablet 12.5 mg PO QAM 09/04/19 09/05/20 History olmesartan 5 mg tablet (Benicar) 10 mg PO DAILY@1500 tab 05/08/20 09/05/20 History hydroxychloroquine 200 mg tablet 200 mg PO DAILY@1500 06/16/20 09/05/20 History (Plaquenil) omega-3 fatty acids 1,000 mg 2,000 mg PO BID cap 08/27/20 09/05/20 History capsule (Fish Oil Concentrate) colesevelam 625 mg tablet (WelChol) 1,250 mg PO DAILY@1500 09/05/20 09/05/20 History cyclosporine 0.05 % eye drops in a 1 drp OPB BID 09/05/20 09/05/20 History dropperette (Restasis) diclofenac sodium 1 % topical gel 2 g TOPICAL QID PRN 09/05/20 09/05/20 History (Voltaren Arthritis Pain) levothyroxine 50 mcg tablet 50 mcg PO QDB 09/05/20 09/05/20 History (Levoxyl) pantoprazole 20 mg tablet,delayed 20 mg PO QDB 09/05/20 09/05/20 History release (Protonix) warfarin 3 mg tablet (Jantoven) See Rx Instructions PO UD 09/05/20 09/05/20 History Past Med/Surg History Medical History Acne rosacea, erythematous telangiectatic type Chronic lymphocytic leukemia History of pulmonary embolism History of vertebral fracture Hyperlipidemia Hypothyroidism Psoriasiform dermatitis Pulmonary embolism on right Surgical History H/O arthroscopic knee surgery H/O bilateral breast reduction surgery H/O knee surgery H/O shoulder surgery "R rotator cuff" History of cholecystectomy History of partial hysterectomy History of tonsillectomy History of ventral hernia repair Hx of cataract surgery Hx of tonsillectomy Hx of total knee arthroplasty "bilateral Dr. Aguilar" S/P wrist surgery Family History Mother Gallbladder disease Cardiac disorder Hypertension Kidney disease Kidney stones Lung disease Father Gallbladder disease Hypertension Cardiac disorder Kidney disease Prostate cancer Urinary bladder cancer Diabetes Myocardial infarction Sister Gallbladder disease Hypertension Diabetes Depression Brother Cardiac disorder Hypertension Myocardial infarction Son Hypertension Grandmother Breast cancer Denies family history of Ovarian cancer Colorectal cancer Social History Smoking Status: Never smoker Hx Alcohol Use: Yes Alcohol type: beer and wine Alcohol Intake Frequency: Monthly or Less Hx Substance Use: No Preferred Language: Slovenian Communication Ability: Effective Visual Impairment: No Limitations Hearing Ability: Normal marital status: Current Living Situation: Spouse current occupational status: retired Feels Safe at Home: Yes Childhood Exposure to Second-Hand Smoke: Yes Dental Care, Regularly: Yes Physical Activity Frequency: Does not Exercise Seatbelt Use: always Sunscreen Use: No Review of Systems Review of Systems: REVIEW OF SYSTEMS: Constitutional: No fever, sweats or chills Eyes: No diplopia, no worsening or blurred vision ENT: normal hearing, no trouble swallowing Respiratory: No cough, sputum, dyspnea at rest or on exertion Cardiovascular: (+) chest pain, tightness, NO palpitations Abdomen: No pain, nausea, vomiting, diarrhea or constipation Musculoskeletal: (+) chronic joint pain- hands, fingers, ankles, knees, NO calf pain, swelling Neurologic: No weakness, numbness/tingling, or balance problems Psychiatric: No anxiety or depression Skin: No rash or itch Physical Exam Physical Exam: PHYSICAL EXAM: General: awake, alert, no apparent distress Head: Normocephalic, atraumatic ENT: PERRL, EOMI, no pharyngeal exudate, mucous membranes moist Neuro: AAO x 3, speech clear and appropriate, strength intact bilaterally 5/5, sensation intact and equal all extremities and dermatomes, no pronator drift Chest: equal rise and fall of the chest, no accessory muscle use, no heaves or thrills, Clear to auscultation, on room air, Cardiac: Regular rate and rhythm, telemetry reviewed-NSR sinus arrhythmia, skin warm dry, cap refill <3 seconds, peripheral pulses +2 no JVD, no murmur, trace lower extremity edema GI: NABS x 4 quadrants, soft, nontender to palpation, no rebound, guarding or tenderness : Spontaneously voiding, no pain, no CVA tenderness, MSK: Tender palpation to chest and back, not the same patient the patient is experiencing. Brace to left ankle, Psych: Normal mood and affect Skin: no rash or erythema Results & Data Results & Data ([facility]) Vital Signs (Past 12 Hours) Vital Signs Temp Pulse Resp BP Pulse Ox 09/05/20 10:39 65 18 161/86 H 95 09/05/20 09:05 36.4 C L 63 22 142/68 H 97 Laboratory Results Abnormal Labs 09/05/20 09/05/20 09/05/20 09:52 09:52 09:52 WBC 34.43 H* RDW Coeff of Rose 14.7 H Lymph # (Auto) 27.85 H [place] # (Auto) 1.10 H Immature Gran # (Auto) 0.05 H PT 20.0 H INR 2.1 H Chloride 108 H Glucose 120 H Troponin I 0.077 H* Diagnostic Findings Chest X-Ray 09/05/20 09:32 XR chest 1V portable CLINICAL HISTORY: Chest Pain COMPARISON STUDY: Chest CT December 06, 2017. FINDINGS: Lung volumes are normal. Lungs are clear. There is no pneumothorax or pleural effusion. Cardiac size is normal. Mediastinal contours are normal. There is no evidence for pulmonary edema. Proximal right humeral internal fixation is incidentally noted. IMPRESSION: No acute cardiopulmonary findings. ACT 112: Negative or not required by law. Electronically signed by: Rikki Clifton M.D. 09/05/2020 10:55 AM Chest CTA 09/05/20 11:04 CT ANGIOGRAPHY OF THE CHEST, PULMONARY EMBOLUS PROTOCOL CLINICAL HISTORY: Worsening chest pain. Evaluate for pulmonary embolus. COMPARISON STUDY: Chest CT December 06, 2017. Chest radiograph performed earlier today. TECHNIQUE: Following IV administration of 120 mL of Optiray, helical axial images of the chest were obtained utilizing the pulmonary embolus protocol. Maximal intensity projections and sagittal and coronal reformats were viewed on an independent 3D workstation. IV contrast was administered without complication. Automated exposure control was utilized for the study. A dose lowering technique was utilized adhering to the principles of ALARA. CT DOSE: 604.35 mGy.cm FINDINGS: No pulmonary emboli are identified. Cardiomegaly is noted. There is no pericardial effusion. No pneumothorax or pleural effusion is noted. A 5 mm subpleural right middle lobe nodule is unchanged and CT of December 06, 2017. This is benign given stability. Groundglass opacities reflect atelectasis. There is no consolidation to suggest pneumonia. L1 kyphoplasty is partially imaged. No thoracic lymphadenopathy is present. IMPRESSION: 1. No pulmonary emboli identified. 2. No acute process within the chest. 3. Cardiomegaly. Moderate coronary artery calcification. ACT 112: Negative or not required by law. Electronically signed by: Rikki Clifton M.D. 09/05/2020 11:45 AM Medications Administered Discontinued Medications Ioversol (Optiray 320 125ml) 120 ml IV ONCE ONE Stop: 09/05/20 11:25 Last Admin: 09/05/20 11:24 Dose: 120 ml Documented by: [id number] Home Medications calcium carbonate 600 mg(1,500 mg)-vitamin D3 800 unit chewable tablet (Caltrate 600 plus D) 1 tab PO BID17 11/01/17 [History Confirmed 09/05/20] hydrochlorothiazide 12.5 mg tablet 12.5 mg PO QAM 09/04/19 [History Confirmed 09/05/20] olmesartan 5 mg tablet (Benicar) 10 mg PO DAILY@1500 tab 05/08/20 [History Confirmed 09/05/20] hydroxychloroquine 200 mg tablet (Plaquenil) 200 mg PO DAILY@1500 06/16/20 [History Confirmed 09/05/20] omega-3 fatty acids 1,000 mg capsule (Fish Oil Concentrate) 2,000 mg PO BID cap 08/27/20 [History Confirmed 09/05/20] colesevelam 625 mg tablet (WelChol) 1,250 mg PO DAILY@1500 09/05/20 [History Confirmed 09/05/20] cyclosporine 0.05 % eye drops in a dropperette (Restasis) 1 drp OPB BID 09/05/20 [History Confirmed 09/05/20] diclofenac sodium 1 % topical gel (Voltaren Arthritis Pain) 2 g TOPICAL QID PRN 09/05/20 [History Confirmed 09/05/20] levothyroxine 50 mcg tablet (Levoxyl) 50 mcg PO QDB 09/05/20 [History Confirmed 09/05/20] pantoprazole 20 mg tablet,delayed release (Protonix) 20 mg PO QDB 09/05/20 [History Confirmed 09/05/20] warfarin 3 mg tablet (Jantoven) See Rx Instructions PO UD 09/05/20 [History Confirmed 09/05/20] ECG Additional Comments: Sinus rhythm with marked sinus arrhythmia Left axis deviation Left ventricular hypertrophy with QRS widening Abnormal ECG When compared with ECG of 28-APR-2015 07:11, No significant change was found Confirmed by Heber Zurita ([id number]) on 09/05/2020 9:58:53 AM Code Status & VTE Plan Code Status CODE: FULL VTE: SCD's, ambulation, Coumadin VTE Prophylaxis Plan VTE Prophylaxis will be ordered: Yes Supervising Physician Co-Signing Physician Notes I have personally evaluated and examined this patient. I agree with assessment and plan of Ana BORJA. 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
[2020-09-05] MEDS ORDERED: NITROGLYCERIN/D5W 100MCG/ML 20ML SYR ONE (14:37)
[2020-09-05] MEDS ORDERED: HEPARIN (PORCINE) 1000 UNIT/ML 10 ML (CATH LAB USE ONLY) ONE (14:37)
[2020-09-05] MEDS ORDERED: fentaNYL citrate 100 MCG/2 ML VIAL ONE (14:37)
[2020-09-05] MEDS ORDERED: MIDAZOLAM HCL 1 MG/ML 2ML VIAL ONE (14:37)
[2020-09-05] MEDS ORDERED: niCARdipine HCL INJ 2.5 MG/ML 10 ML AMP ONE (14:37)
[2020-09-05] MEDS ORDERED: CLOPIDOGREL BISULFATE 300 MG TAB ONE (16:21)
--- NOTE | 2020-09-05 16:32 | Post Anesthesia Assessment ---
Date of Service September 05, 2020 Post Sedation Assessment Vital Signs Temp Pulse Resp BP Pulse Ox 09/05/20 14:30 68 18 92 09/05/20 14:02 52 L 20 96 09/05/20 13:31 58 L 19 155/81 H 97 09/05/20 13:00 64 22 166/66 H 98 09/05/20 12:40 60 19 182/97 H 99 09/05/20 10:39 65 18 161/86 H 95 09/05/20 09:05 97.5 F L 63 22 142/68 H 97 Recovery Score Activity: Moves 4 extremities Respiration: Deep Breath/Cough Circulation: +/-20% PreAnes Value Consciousness: Fully Awake Oxygen Saturation: O2 needed for >90% Discharge Sedation Level of Care: Fast Track Phase II Post Sedation Plan On clinical assessment, the patient appears to have tolerated the sedation without complications. Patient is recovering as anticipated. Patient will continue to be monitored by nursing and may be discharged when sedation discharge criteria are met per below protocol. Upon Completions of procedure up to 15 minutes continue every 5 minute vital signs and the P.A.R. score; then discharge to a Phase I or Fast Track to Phase II per the following guidelines: * Discharge Patient to appropriate Phase II area if PAR is 8 or greater or return to pre- procedure baseline. The post - procedure orders will be as directed. * If PAR score is less than 8 or not return to pre-procedure baseline then patient will follow Phase I monitoring till PAR is reached for Phase II. The Phase I may be done in procedure room or may call to secure a Phase I area. * If naloxone or flumazenil are used for reversal, hold in Phase I for continued monitoring from when last reversal dose was given for a minimum of 60 minutes or longer pending the nurse and/or physician discretion of patient condition before discharge to Phase II. Please call the Sedation Physician to re-evaluate and complete post-note for discharge to Phase II area. Do NOT discharge from procedure sedation or Phase 1 until post- sedation evaluation note is complete by procedure /sedation MD Sedation Discharge Instructions to be given to the patient at discharge to home.
--- NOTE | 2020-09-05 16:35 | Post Operative Brief Note ---
Cardiology Brief Post Op Date of Surgery September 05, 2020 Pre & Post Diagnosis CAD Procedure Cardiac cath PCI to OM with single BLANKA Stone Operator Jac De La Torre MD Muskrat Trapper Rosalino Estimated Blood Loss 10 Findings See Below 100% proximal OM2, 90% mid OM2 80% mid LAD non-dominant RCA Successful PCI with 2.5 x 12 Benjy to proximal OM2 - Angioplasty with 2.0 balloon to mid OM2. Plan for staged PCI of LAD as an outpatient. Specimens Specimen Description: na Drains Other Anesthesia Type RN Sedation Complications none Disposition Accompanied Patient To Recovery: Yes Overlapping Procedure I was present for: the critical portions of procedure. I was immediately available: during the entire case. Back up surgeon: was not required during procedure.
[2020-09-05] MEDS ORDERED: ONDANSETRON INJ 2 MG/ML 2 ML VIAL IV PRN (16:36)
[2020-09-05] MEDS ORDERED: ACETAMINOPHEN 325 MG TAB PO PRN (16:36)
[2020-09-05] MEDS ORDERED: SODIUM CHLORIDE 0.9% 1000ML 750 ML IV SCH (16:45)
[2020-09-05] MEDS ORDERED: DICLOFENAC SOD 1% GEL 100 GM TUBE EXT PRN (16:56)
[2020-09-05] MEDS ORDERED: HYDROXYCHLOROQUINE SULFATE 200 MG TAB PO SCH (16:56)
[2020-09-05] MEDS ORDERED: NON-FORMULARY MEDICATION (Colesevelam [Welchol] 625 mg tablet) PO SCH (16:56)
[2020-09-05] MEDS ORDERED: OLMESARTAN MEDOXOMIL 5 MG TAB PO SCH (16:56)
[2020-09-05] MEDS ORDERED: WARFARIN SOD 3 MG TAB PO SCH (16:56)
--- NOTE | 2020-09-05 23:29 | Cardiology Consultation ---
Date of Consultation September 05, 2020 Assessment & Plan (1) NSTEMI (non-ST elevated myocardial infarction): Presentation consistent with NSTEMI with ongoing chest pain and recommend proceeding with urgent cardiac catheterization and possible PCI. INR 2.1 but can safely proceed via left radial approach. Discussed risks, benefits, alternatives of procedure with patient and they are willing to proceed. Further recommendations pending findings of coronary angiography. History of Present Illness Attending Physician: Katie Leslie MD History of Present Illness Mrs. Bustamante is a 79-year-old woman here with acute chest pain and elevated troponin consistent with NSTEMI.. Patient seen emergently in the ED in the setting of rising troponin and ongoing chest symptoms. Patient is followed by Dr. Mitchell. Seen previously for exertional dyspnea, intermittent lower extremity edema. Had a normal exercise stress echo 10/2019 with above average functional capacity. Echocardiogram showed normal resting LV function with diastolic function, no valvular abnormalities. ASCVD risk factors include obesity, dyslipidemia with statin intolerance and family history of pr emature CAD. Describes stuttering epigastric/right-sided chest pain over the last 2 days. Had one episode yesterday where with walking 50 feet became diaphoretic, extremely fatigued. Overnight had worsened chest symptoms now radiating to her left chest which persisted this morning. Hemodynamically stable. Initial ECG showed sinus rhythm with LVH and no dynamic ST changes. Chest CTA negative for PE, lung huston clear, coronary artery calcification noted. Initial troponin 0.07, second 0.49. Continues to endorse steady 3-4 chest discomfort. 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 Social history: and lives with her . 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 Denies tobacco or alcohol. Family history: Father with multiple MIs initially in his 50s. Brother had an CA. Son from questionable pneumonia/CA. Allergies Allergy/AdvReac Type Severity Reaction Status Date / Time niacin Allergy Intermediate SHORTNESS Verified 09/05/20 11:44 OF BREATH adhesive Allergy Mild ITCHING Verified 09/05/20 11:44 aspirin Allergy Unknown stomach raw Verified 09/05/20 11:44 Sulfa (Sulfonamide Allergy Unknown . Verified 09/05/20 11:44 Antibiotics) lactose AdvReac Unknown LACTOSE Verified 09/05/20 11:44 INTOLERANT oxycodone AdvReac Unknown vomiting Verified 09/05/20 11:44 Home Medications Medication Instructions Recorded Confirmed Type calcium carbonate 600 mg(1,500 1 tab PO BID17 11/01/17 09/05/20 History mg)-vitamin D3 800 unit chewable tablet (Caltrate 600 plus D) hydrochlorothiazide 12.5 mg tablet 12.5 mg PO QAM 09/04/19 09/05/20 History olmesartan 5 mg tablet (Benicar) 10 mg PO DAILY@1500 tab 05/08/20 09/05/20 History hydroxychloroquine 200 mg tablet 200 mg PO DAILY@1500 06/16/20 09/05/20 History (Plaquenil) omega-3 fatty acids 1,000 mg 2,000 mg PO BID cap 08/27/20 09/05/20 History capsule (Fish Oil Concentrate) colesevelam 625 mg tablet (WelChol) 1,250 mg PO DAILY@1500 09/05/20 09/05/20 History cyclosporine 0.05 % eye drops in a 1 drp OPB BID 09/05/20 09/05/20 History dropperette (Restasis) diclofenac sodium 1 % topical gel 2 g TOPICAL QID PRN 09/05/20 09/05/20 History (Voltaren Arthritis Pain) levothyroxine 50 mcg tablet 50 mcg PO QDB 09/05/20 09/05/20 History (Levoxyl) pantoprazole 20 mg tablet,delayed 20 mg PO QDB 09/05/20 09/05/20 History release (Protonix) warfarin 3 mg tablet (Jantoven) See Rx Instructions PO UD 09/05/20 09/05/20 History Patient History Medical History Acne rosacea, erythematous telangiectatic type Chronic lymphocytic leukemia History of pulmonary embolism History of vertebral fracture Hyperlipidemia Hypothyroidism Psoriasiform dermatitis Pulmonary embolism on right Surgical History H/O arthroscopic knee surgery H/O bilateral breast reduction surgery H/O knee surgery H/O shoulder surgery "R rotator cuff" History of cholecystectomy History of partial hysterectomy History of tonsillectomy History of ventral hernia repair Hx of cataract surgery Hx of tonsillectomy Hx of total knee arthroplasty "bilateral Dr. Aguilar" S/P wrist surgery Family History Mother Gallbladder disease Cardiac disorder Hypertension Kidney disease Kidney stones Lung disease Father Gallbladder disease Hypertension Cardiac disorder Kidney disease Prostate cancer Urinary bladder cancer Diabetes Myocardial infarction Sister Gallbladder disease Hypertension Diabetes Depression Brother Cardiac disorder Hypertension Myocardial infarction Son Hypertension Grandmother Breast cancer Denies family history of Ovarian cancer Colorectal cancer Social History Smoking Status: Never smoker Hx Alcohol Use: No Hx Substance Use: No Preferred Language: Mongolian Communication Ability: Effective Visual Impairment: No Limitations Hearing Ability: Normal Animal Bounty Hunter Required: No Beliefs That Will Affect Care: None marital status: Current Living Situation: Significant Other current occupational status: retired Other Information That Helps Us Care for You: No Feels Safe at Home: Yes Childhood Exposure to Second-Hand Smoke: Yes Dental Care, Regularly: Yes Physical Activity Frequency: Does not Exercise Seatbelt Use: always Sunscreen Use: No Assistive Devices: None Review of Systems Review of Systems: All systems reviewed & are unremarkable except as noted in HPI & below Physical Exam Physical Exam: General: Comfortable, mildly anxious HEENT: Sclerae anicteric Lungs: Clear to auscultation bilaterally Cardiac: Regular rate and rhythm, occasional premature beats, no murmurs. No JVD. Abdomen: Soft, nontender, nondistended, positive bowel sounds. Extremities: Warm, well perfused, no edema. 2+ radial pulses. Unable to supinate right arm Skin: No rashes or lesions. Neuro: Nonfocal Psych: Alert orient x3, normal affect and mood Results & Data ([facility]) Vital Signs (Past 12 Hours) Vital Signs Temp Pulse Pulse Resp BP BP Pulse Ox 09/05/20 22:58 98.2 F 64 16 106/51 L 92 09/05/20 22:52 62 18 94/47 L 93 09/05/20 22:12 66 17 93/46 L 93 09/05/20 21:51 66 18 96/50 L 91 09/05/20 20:52 67 18 95/48 L 92 09/05/20 19:52 64 20 101/46 L 93 09/05/20 19:51 98.6 F 65 14 101/46 L 94 09/05/20 19:21 64 20 97/68 L 95 09/05/20 18:52 65 17 98/56 L 96 09/05/20 17:37 59 L 19 112/61 09/05/20 17:22 62 22 112/45 L 09/05/20 17:07 55 L 17 100/47 L 92 09/05/20 16:56 98.1 F 09/05/20 16:52 55 L 19 99/57 L 94 09/05/20 16:40 57 L 17 95 09/05/20 14:30 68 18 92 09/05/20 14:02 52 L 20 96 09/05/20 13:31 58 L 19 155/81 H 97 09/05/20 13:00 64 22 166/66 H 98 09/05/20 12:40 60 19 182/97 H 99 PG Care Time/CCT Total # of Minutes Spent Total Time Spent with Patient: Total time spent is greater than 50% in coordination of care (as documented) at patient's floor/unit and/or counseling patient: Coding Level of Care Code 03710 Inpt Consult Level 4 Diagnoses NSTEMI (non-ST elevated myocardial infarction) I21.4
--- NOTE | 2020-09-05 23:51 | Cardiac Catheterization ---
[facility] Data: Solutions Sales Consultant Cardiac Status Clinical evaluation leading to the procedure CAD Presenation: Non STEMI Anginal Classification: CCS IV Heart Failure: No Cardiogenic Shock within 24 Hours: No Cardiac Arrest within 24 Hours: No Imaging Studies Past 6 Months: No Stress Studies Past 6 Months: No Diagnostic Physicians Name: Jac De La Torre MD Status: Elective Closure Device Percutaneous Entry Location: Radial Closure Device: Radial Band Recommendations: PCI without planned CABG PCI Indication: PCI for high risk Non-SAIRA Lesion Segment Name: Proximal OM 2 Culprit Artery: Yes Stenosis Prior to Rx (%): 100 Chronic Total Occlusion: No IVUS: No FFR: No Pre-Procedure LORI Flow: 0 Previously Treated Lesion: No Lesion Complexity: Non-High/Non-C Lesion Length (mm): 10 Thrombus Present: Yes Bifurcation Lesion: No Guidewire Across Lesion: Stenosis Post-Procedure (%): 0 Post-Procedure LORI Flow: 3 Devices(s) Deployed: Yes Yes Intraprocedure Events Significant Disection: No Perforation: No Cardiac Cath Procedure Full Procedure Date September 05, 2020 Pre-Procedure Diagnosis Pre-Procedure Diagnosis: Non STEMI AUC Score AUC Score: 8 Post-Procedure Diagnosis Post-Procedure Diagnosis: Severe CAD, Successful PCI and Normal Intracardiac Pressures Procedure(s) Performed Procedure(s) Performed: Coronary Angiography, Left Heart Cath and Drug Eluting Stent Forklift Truck Operator Jac De La Torre MD Bus Escort(s) Rosalino Estimated Blood Loss Estimated Blood Loss: 15 Medication(s) Medication(s): Clopidogrel, Fentanyl, Heparin, Lidocaine 1%, Nicardipine, Nitroglycerin and Versed Summary of Findings Indication: High risk NSTEMI Access: 6 Fr left radial artery Catheters: Diagnostic JL 3.5, JR4. EBU 3.5 guide Findings: LM -large caliber, calcified, luminal irregularities LAD -30 to 40 percent proximal, 80 to 90% focal stenosis just after takeoff of medium D2, sequential latemid 60% stenosis at takeoff of small D3. Distal vessel with luminal irregularities and wraps around apex. Circumflex - Dominant, large caliber, large OM 2 100% acutely occluded proximally, 30% mid segment stenosis after OM 2. Distal vessel without significant disease RCA -small, nondominant, no significant disease LVEDP - 9 -- PCI -- Antithrombotic therapy: Heparin, Clopidogrel Procedure: Left main cannulated with EBU 3.5 guide Reed Fixer 50 wire passed across lesion into distal vessel Proximal OM 2 lesion predilated with 2.5 compliant balloon Noted to have a 90% mid stenosis after flow reestablished Mid OM 2 stenosis dilated with 2.0 balloon with appropriate expansion and no evidence of dissection. Dilated proximal OM2 lesion stented with 2.5 x 12 mm [place] drug-eluting stent Stent post-dilated with stent balloon IC vasodilators administered for spasm Post procedure LORI 3 flow, stent well expanded with minimal residual stenosis and no apparent cardiac complications. Arterial Closure: TR band Summary: 1. Severe multivessel coronary artery disease -Acute 100% proximal OM 2 occlusion. 90% mid OM 2 stenosis after flow reestablished Sequential mid LAD lesions (early-mid 80 to 90%, late-mid 60%). 2. Normal intracardiac filling pressure 3. Successful PCI of proximal OM 2 occlusion with single drug-eluting stent (2.5 x 12 mm Benjy). Successful angioplasty of mid OM 2 with 2.0 balloon Recommendations: To PCU for continued monitoring Loaded with clopidogrel 600 mg in Solutions Sales Consultant Can resume Coumadin tomorrow. Triple therapy with aspirin, clopidogrel and Coumadin while admitted. On discharge dual therapy with clopidogrel, Coumadin for ideally 1 year. Titrate beta-alissa/ARB as BP allows. Repeat trial of statin, possible PCSK9 as an outpatient Consult cardiac Rehab Plan for staged PCI of LAD as an outpatient. Hemodynamics Rest Ao:: 82/47/92 Final Ao: 75/37/76 LV: 107/9 Recommendations Recommendations: PCI without planned CABG Specimens Specimens: None Radiation Exposure (mGy) 1640 Contrast (mls) 100 Fluids (cc crystalloids) Fluids (cc crystalloids): 380 Drains Drains: None Anesthesia Moderate 1519--1613 Procedural Complication(s) None Disposition PCU I attest to the content of the Intraoperative Record and any orders documented therein. Any exceptions are noted below. [facility] Card Cath Procedure Codes Cardiac Catheterization Procedure 1: Cardiovascular Cath Procedures: 09915 Coronaries and LHC (+/-LV) Moderate Sedation Procedure 1: Sedation/Anesthesia: 70593 Mod Sedation by the same physician;Init15 Min Child Age 5 & Up Procedure 2: Sedation/Anesthesia: 72680 Mod Sedation by the same physician; Ea [id number] Minutes Stenting Procedure 1: Cardiovascular Stent Procedures: 98506 Perc transluminal revascularization of acute sub/total occl, aMI PG Care Time/CCT Total # of Minutes Spent Total Time Spent with Patient: Total time spent is greater than 50% in coordination of care (as documented) at patient's floor/unit and/or counseling patient:
[2020-09-06 06:02] LABS: Hemoglobin 11.6 g/dL (12.0-16.0); Mean Corpuscular Hemoglobin 27.8 pg (25-34); Mean Corpuscular Hgb Conc 32.2 g/dL (32-36); Mean Corpuscular Volume 86.3 fL (80-100); Mean Platelet Volume 9.2 fL (7.4-10.4); Platelet Count 137 K/uL (130-400); RDW Coefficient of Variation 14.7 % (11.5-14.5); RDW Standard Deviation 45.9 fL (36.4-46.3); Red Blood Count 4.17 M/uL (4.2-5.4); White Blood Count 28.98 K/uL (4.8-10.8)
[2020-09-06 06:11] LABS: INR 2.5 (0.9-1.1)
[2020-09-06 06:54] LABS: Basophils # (auto) 0.09 K/uL (0-0.2); Basophils % (auto) 0.3 %; Eosinophils # (auto) 0.08 K/uL (0-0.5); Eosinophils % (auto) 0.3 %; Immature Granulocytes # (auto) 0.06 K/uL (0.00-0.02); Immature Granulocytes % (auto) 0.2 %; Lymphocytes # (auto) 23.07 K/uL (1.2-3.4); Lymphocytes % (auto) 79.6 %; Monocytes # (auto) 0.99 K/uL (0.11-0.59); Monocytes % (auto) 3.4 %; Neutrophils # (auto) 4.69 K/uL (1.4-6.5); Neutrophils % (auto) 16.2 %; Ovalocytes 1+; Smudge Cells Present
[2020-09-06] MEDS ORDERED: LEVOTHYROXINE SODIUM 50 MCG TABLET PO SCH (07:30)
[2020-09-06] MEDS ORDERED: PANTOprazole 40 MG TAB PO SCH (07:30)
--- NOTE | 2020-09-06 07:59 | Hospitalist Progress Note ---
Date of Service September 06, 2020 Assessment & Plan (1) Chest pain: Plan: Pt with Left heart cath and intervention to OM2 lesion, noted to has some mid OM2 stenosis also. Also noted to have some LAD disease, cardiology plans to have staged further PCI as outpt recommend triple theapy with asa/plavix and coumadin, INR is 2.5, but pt states has averse reaction to aspirin, will discuss with cardiology (2) Elevated troponin I level: Plan: NSTEMI s/p intervention, on plavix/ b jaylene and arb (3) Hypertension: Plan: Normally well controlled as outpatient- on HCTZ and Olmesartan, now also on B Jaylene, - metoprolol 12.5/Hctz (4) Chronic lymphocytic leukemia: Plan: WBC 34.43- baseline 20-28 up-trending over the past 2 years - lymph predominance as expected (5) Hypothyroidism: Plan: Continue synthroid - no acute issues (6) Dyslipidemia: Plan: Continue WelCHOL Lipid panel- Tri: 213; Chol 259; LDL 172; HDL 44 (7) Statin intolerance: Plan: Continue her WelCHOl (8) GERD (gastroesophageal reflux disease): Plan: On protonix as outapatient - follows [facility] for chronic abdominal pain - GI cocktail x1 now and continue daily Protonix (9) Erosive (osteo)arthritis: Plan: Continue Plaquenil (10) History of DVT (deep vein thrombosis): Plan: DVT/PE- continue Coumadin - INR 2.1 - CTA of the chest negative for PE Admission and Anticipated Discharge Date Admission Date: September 05, 2020 Results & Data Results & Data ([facility]) Vital Signs (Past 12 Hours) Vital Signs Temp Pulse Pulse Resp BP BP Pulse Ox 09/06/20 03:30 98.1 F 71 17 96/62 L 92 09/06/20 01:14 69 106/46 L 09/05/20 23:30 63 09/05/20 22:58 98.2 F 64 16 106/51 L 92 09/05/20 22:52 62 18 94/47 L 93 09/05/20 22:12 66 17 93/46 L 93 09/05/20 21:51 66 18 96/50 L 91 09/05/20 20:52 67 18 95/48 L 92 PG Care Time/CCT Total # of Minutes Spent Total Time Spent with Patient: Total time spent is greater than 50% in respite coordinator rdination of care (as documented) at patient's floor/unit and/or counseling patient: Coding Diagnoses Chest pain R07.2 Chest pain type: precordial pain Elevated troponin I level R77.8 Hypertension I10 Chronic lymphocytic leukemia C91.90 Hypothyroidism E03.9 Dyslipidemia E78.5 Statin intolerance Z78.9 GERD (gastroesophageal reflux disease) K21.9 Erosive (osteo)arthritis M15.4 History of DVT (deep vein thrombosis) Z86.718 (1) Chest pain Chest pain type: precordial pain Qualified Code(s): R07.2 - Precordial pain
[2020-09-06] MEDS ORDERED: ASPIRIN 81 MG ECTAB PO SCH (09:00)
[2020-09-06] MEDS ORDERED: METOPROLOL TARTRATE 25 MG TAB PO SCH (09:00)
[2020-09-06] MEDS ORDERED: ATORVASTATIN 20 MG TAB PO SCH (09:00)
[2020-09-06] MEDS ORDERED: CLOPIDOGREL BISULFATE 75 MG TAB PO SCH (09:00)
[2020-09-06] MEDS ORDERED: hydroCHLOROthiazide 25 MG TAB PO SCH (09:00)
[2020-09-06 11:02] LABS: BUN Creatinine Ratio 16.5 (10-20); Calcium 7.9 mg/dl (8.5-10.1); Creatinine Clr Calc Pharmacy 60.4 ml/min; Est GFR (African American) 91.7 ml/min; Est GFR (Non-African American) 79.1 ml/min; Potassium 3.4 mmol/L (3.5-5.1)
[2020-09-06 11:22] LABS: Troponin I 44.5 ng/ml (0-0.045)
--- NOTE | 2020-09-06 12:44 | XCELERA ---
[id number] \\[id number]
--- NOTE | 2020-09-06 12:59 | Cardiology Progress Note ---
Date of Service September 06, 2020 Assessment & Plan (1) NSTEMI (non-ST elevated myocardial infarction): Plan: Patient is doing very well after PCI of proximal OM 2 occlusion with single drug-eluting stent. Dr. De La Torre recommends triple therapy with aspirin, clopidogrel, and warfarin currently. Upon discharge discontinue aspirin and continue clopidogrel and warfarin for 1 year. Markedly elevated troponins likely washout from opening occluded vessel. Echocardiogram shows only minimal wall motion abnormality with preserved LV systolic function and no evidence of tamponade. Would ensure patient does not have ongoing diarrhea (she could take WelChol from home, apparently it is not on formulary), she could be discharged later today or tomorrow if she remains clinically stable. (2) CAD (coronary artery disease): Plan: RCA is nondominant, circumflex disease addressed with PCI, remaining occlusive LAD disease to be addressed as outpatient. (3) Stenosis of left anterior descending (LAD) artery: Plan: Remaining LAD lesions include early to mid 80 to 90%, late to mid 60%. Staged PCI of LAD will be arranged as an outpatient. (4) Hypertension: Plan: Dr. De La Torre recommends titrating beta-alissa/ARB. (5) Dyslipidemia: Plan: Repeat statin trial, if unsuccessful consider PCSK9 inhibitor. (6) Chronic lymphocytic leukemia: Admission and Anticipated Discharge Date Admission Date: September 06, 2020 Subjective Patient is doing well, she notes no chest discomfort, dyspnea, or palpitations. She did have mild diarrhea after eating breakfast, she notes that this is a chronic problem (postprandial diarrhea when she does not take WelChol). Telemetry showed sinus rhythm in the 60s overnight. Physical Exam Physical Exam: No distress. Afebrile. BP initially borderline hypotensive, now mildly hypertensive. Pulse 60s70 bpm and regular without ectopy. Skin: no ecchymoses or generalized lesions. HEENT: unremarkable. Neck: no JVD or carotid bruits. Lungs: clear bilaterally. Cardiac: regular rhythm, no murmur or gallop. Abdomen: benign. Extremities: Left radial cath site benign. No edema, pulses intact. Neurologic: normal affect, nonfocal. Results & Data ([facility]) Vital Signs (Past 12 Hours) Vital Signs Temp Pulse Resp BP Pulse Ox 09/06/20 07:58 98.4 F 70 18 152/82 H 94 09/06/20 03:30 98.1 F 71 17 96/62 L 92 09/06/20 01:14 69 106/46 L Laboratory Results Troponin increased to 44.5. WBC 28.9 (chronically elevated, down from 34.4), hemoglobin 11.6, normal platelet count. Potassium 3.4, otherwise normal electrolytes, BUN 12, creatinine 0.72. Diagnostic Findings ECG today showed sinus rhythm with PACs, left anterior fascicular block, poor R wave progression, and nonspecific anterolateral T wave inversions. Compared with ECG yesterday, no significant change. Echocardiogram today showed normal LV systolic function (EF 60-65%), mild mid to distal lateral wall hypokinesis with otherwise normal wall motion, mild LVH with diastolic dysfunction and mild mitral regurgitation. RV systolic pressure normal. Compared with 2020 study, mild lateral wall hypokinesis is new, otherwise no significant change. PG Care Time/CCT Total # of Minutes Spent Total Time Spent with Patient: Total time spent is greater than 50% in coordination of care (as documented) at patient's floor/unit and/or counseling patient: Coding Level of Care Code 00701 Subseq Hosp Care Lvl 3 Diagnoses NSTEMI (non-ST elevated myocardial infarction) I21.4 Chronic lymphocytic leukemia C91.90 CAD (coronary artery disease) I25.10 Stenosis of left anterior descending (LAD) artery I25.10 Hypertension I10 Dyslipidemia E78.5
--- NOTE | 2020-09-06 16:01 | Discharge Summary ---
Date of Service September 06, 2020 Admission HPI Per Admitting Provider 79 YOF with past medical history of: GERD, HTN, HLD, Hypothyoridism, PE (2016), DVT(2014(on Coumadin), CLL, Erosive arthritis (on plaquenil), OA, . Patient comes to the emergency room for complaints of chest pain for 3 days. The patient states that the pain started on Tuesday evening and originally felt like a burning pain. This was located on the right side of her chest. This was not associated with any other symptoms. However, as the days progressed the pain has moved to her left side of her chest and into her back above her shoulder blades. This has also progressed with her feeling more fatigued and "not right". She denies any nausea or vomiting, dizziness, or palpitations. This pain she is currently having comes in waves. She also went to for a walk last night with her for 2 blocks and when she came back she had some cold sweats and as above fatigue and not feeling well. She had some discomfort prior to and after CT scan and currently feels it gone. In the ER she She had routine labs drawn to include a Troponin I level, ECG, and CTA of the chest. Her ECG has no acute dynamic changes to it (last one available for review is 2015), Troponin I was 0.077, CTA of the chest did not reveal pulmonary embolism or dissection. Patient will be observed to further evaluate her CP with ECG and Troponin I. She normally follows with Dr. Mitchell for her staff analyst, he has been consulted. Patient has been evaluated with ECHO and stress test in 2019 for dyspnea- Her excercise capacity at that time was reported as 40% GREATER than most persons her age. ECHO was negative for ischemia(10/2019) with EF 65-70% type I diastolic dysfunction, no evidence of heart disease or pulmonary hypertension (june 2019). She remains on Coumadin for her VTE and PE, she is intolerance to statins and Zetia, and her BP is normally well controlled. She endorses an allergy to Aspirin stomach upset. She has received her COVID vaccine and her COVID test today is Principal Diagnosis N stemi CAD with intervention to OM with BLANKA , additional CAD is noted and will be approached is staged fashion as outpt Discharge Exam The patient appeared well Vital signs as documented. Lungs are clear to auscultation and appear unlabored Cardiac exam, Rhythm is regular.. No murmurs, rubs or gallops. Abdominal exam reveals normal bowel sounds, soft non tender, no masses Extremities are nonedematous and both pedal pulses are normal. Neurologic exam is alert and oriented, no focal loss of strength or sensation Skin is without bruises or rashes Psychologically is without concerns for anxiety or depression. Discharge Data Allergies Allergy/AdvReac Type Severity Reaction Status Date / Time niacin Allergy Intermediate SHORTNESS Verified 09/05/20 11:44 OF BREATH adhesive Allergy Mild ITCHING Verified 09/05/20 11:44 aspirin Allergy Unknown stomach raw Verified 09/05/20 11:44 Sulfa (Sulfonamide Allergy Unknown . Verified 09/05/20 11:44 Antibiotics) lactose AdvReac Unknown LACTOSE Verified 09/05/20 11:44 INTOLERANT oxycodone AdvReac Unknown vomiting Verified 09/05/20 11:44 Consultations 09/05/20 11:35 ED Decision to Admit Stat 09/05/20 16:38 Consult Cardiac Rehabilitation Routine 09/05/20 16:56 Consult Cardiology Routine Procedures Performed Operation Date: 09/05/20 14:45 Actual Procedures s Cineradiography w/Routine Exam - Castillo De La Torre MD p Drug Eluting Stent SGl Vessel - Castillo De La Torre MD s Cath, Left with Cors and Vent - Castillo De La Torre MD Ordered Studies 09/05/20 11:04 CT angio chest PE protocol Stat 09/05/20 14:17 CL Cath Imgs for PACS use only Stat Hospital Course (1) Chest pain: Nstemi Pt with Left heart cath and intervention to OM2 lesion, noted to has some mid OM2 stenosis also. Also noted to have some LAD disease, cardiology plans to have staged further PCI as outpt recommend triple theapy with asa/plavix and coumadin, INR is 2.5, but pt states has averse reaction to aspirin, she is agreeable to low dose baby aspirin will discuss with cardiology at follow up appointment left heart cath Summary: 1. Severe multivessel coronary artery disease -Acute 100% proximal OM 2 occlusion. 90% mid OM 2 stenosis after flow reestablished Sequential mid LAD lesions (early-mid 80 to 90%, late-mid 60%). 2. Normal intracardiac filling pressure 3. Successful PCI of proximal OM 2 occlusion with single drug-eluting stent (2.5 x 12 mm [place]). Successful angioplasty of mid OM 2 with 2.0 balloon Recommendations: To PCU for continued monitoring Loaded with clopidogrel 600 mg in Loss Prevention Supervisor Can resume Coumadin tomorrow. Triple therapy with aspirin, clopidogrel and Coumadin while admitted. On discharge dual therapy with clopidogrel, Coumadin for ideally 1 year. Titrate beta-jaylene/ARB as BP allows. Repeat trial of statin, possible PCSK9 as an outpatient (2) Elevated troponin I level: NSTEMI s/p intervention, on plavix/ b jaylene and arb (3) Hypertension: Normally well controlled as outpatient- on HCTZ and Olmesartan, now also on B Jaylene, - metoprolol 12.5/Hctz (4) Chronic lymphocytic leukemia: WBC 34.43- baseline 20-28 up-trending over the past 2 years - lymph predominance as expected (5) Hypothyroidism: Continue synthroid - no acute issues (6) Dyslipidemia: Continue WelCHOL Lipid panel- Tri: 213; Chol 259; LDL 172; HDL 44 (7) Statin intolerance: Continue her WelCHOl, attempt trial of atorvastatin (8) GERD (gastroesophageal reflux disease): On protonix as outapatient - follows [facility] for chronic abdominal pain - GI cocktail x1 now and continue daily Protonix (9) Erosive (osteo)arthritis: Continue Plaquenil (10) History of DVT (deep vein thrombosis): DVT/PE- continue Coumadin - INR 2.1 - CTA of the chest negative for PE Total Time Total Time Spent Total Time Spent (In Minutes): It required greater than 30 minutes to prepare this patient for discharge Discharge Plan Discharge Items Patient Disposition: Home - Self-Care Reason For Visit: CHEST PAIN Discharge Diagnosis: mild heart attack, NSTEMI stent applied to coronary vessel ( obtuse marginal) Activity: Per Instructions section Activity Comment: no intentional exercise until released by cardiology Non-emergency contact: Primary Care Provider and Disability Services Coordinator Call non-emergency contact if: your symptoms worsen Follow-up/Referrals: Lesley Hui MD [Primary Care Provider] - Diet: Heart Healthy Addtl Attending Provider Instructions: We are aware of your previous reaction to aspirin, please attempt to tolerate a baby aspirin a day and then discuss this further at your cardiology visit It is very important that you take you plavix every day. ACTIVITY RECOMMENDATIONS: Excess manipulation of the wrist should be avoided for the next 24-48 hours. * No lifting over 2 pounds (approximately a 1/2 gallon of milk) with the utilized arm for 24 hours. * No strenuous activity such as bowling or tennis for 3 days. * Keep the site of the procedure covered with a bandage for 24 hours. *You may shower the day after the procedure. Do not take a tub bath or submerge the puncture site in water for the next 3 days. *Do not operate any motorized equipment for 3 days. SPECIAL CARE INSTRUCTIONS: The site may be slightly bruised and sore following your procedure. Should any of the following occur, contact the Dr. who performed your procedure. 1. Redness/inflammation, swelling, chills, or fever, or colored drainage at procedure site within 3-7 days after your procedure. 2. Coldness, discoloration, ongoing numbness, severe pain, or swelling. Expect mild tingling of hand and tenderness at the puncture site for up to three days. If this persists beyond three days, or other symptoms develop, notify the Dr. who performed your procedure. BLEEDING: If the procedure site on your wrist begins to bleed, do not panic 1. Place 1 or 2 fingers firmly just slightly above the insertion site to stop the bleeding. You may be able to feel your pulse as you hold pressure. 2. Lift your finger after 5 minutes to see if the bleeding has stopped. 3. Once the bleeding has stopped, gently wipe the wrist area clean with a bandage. * If the bleeding from your wrist does not stop after 10 minutes, or if there is a large amount of bleeding or spurting, call 911 (do not drive yourself to the [facility]). SKIN IRRITATION: * You may experience some redness and/or swelling in the area where radiation was administered. If any skin irritation occurs, please contact your family physician. FOLLOW UP VISIT: Keep any scheduled doctor appointments. Pending Studies at Discharge: Yes Stand-Alone Forms: [employer], Smoking Cessation Medications and DC Order Prescriptions: New atorvastatin 20 mg Tablet 20 mg PO QAM Qty: 30 RF: 5 clopidogrel 75 mg Tablet 75 mg PO QAM Qty: 30 RF: 5 aspirin 81 mg Tablet,Delayed Release (Dr/Ec) 81 mg PO QAM Qty: 30 RF: 5 metoprolol tartrate 25 mg Tablet 12.5 mg PO BID Qty: 60 RF: 5 clopidogrel [Plavix] 75 mg tablet 75 mg PO DAILY Qty: 30 RF: 5 Continued Caltrate 600 plus D 600 mg (1,500 mg)-800 unit Tablet,Chewable 1 tab PO BID17 RF: 0 olmesartan [Benicar] 5 mg tablet 10 mg PO DAILY@1500 RF: 0 hydroxychloroquine [Plaquenil] 200 mg tablet 200 mg PO DAILY@1500 RF: 0 omega-3 fatty acids [Fish Oil Concentrate] 1,000 mg capsule 2,000 mg PO BID RF: 0 diclofenac sodium [Voltaren Arthritis Pain] 1 % gel 2 g TOPICAL QID PRN (Reason: Pain) RF: 0 warfarin [Jantoven] 3 mg tablet See Rx Instructions PO UD RF: 0 pantoprazole [Protonix] 20 mg tablet,delayed release (DR/EC) 20 mg PO QDB RF: 0 colesevelam [WelChol] 625 mg tablet 1,250 mg PO DAILY@1500 RF: 0 levothyroxine [Levoxyl] 50 mcg tablet 50 mcg PO QDB RF: 0 Restasis 0.05 % dropperette 1 drp OPB BID RF: 0 Discontinued hydrochlorothiazide 12.5 mg tablet 12.5 mg PO QAM RF: 0 Discharge Orders: Discharge Order (Routine); Ordered 09/06/20 Ordered By: Guille Madrid/Other Patient Handouts: Coronary Angiography, Having Cardiac Catheterization, Coronary Angioplasty Stenting Dc Admission Data Admit Date/Time: 09/06/20 09:07 Attending Provider: Guille Flores Admit Provider: Eugene Perez Primary Care Provider: Lesley Hui Other Providers: Katie Leslie ; Wagner Mitchell Other Interventions: Discharge Summary Assessment (RN) Last Done: 09/06/20 13:42 Coding Level of Care Code D/C DAY MANAGEMENT >30 MINS Diagnoses Chest pain R07.2 Chest pain type: precordial pain Elevated troponin I level R77.8 Hypertension I10 Chronic lymphocytic leukemia C91.90 Hypothyroidism E03.9 Dyslipidemia E78.5 Statin intolerance Z78.9 GERD (gastroesophageal reflux disease) K21.9 Erosive (osteo)arthritis M15.4 History of DVT (deep vein thrombosis) Z86.712
--- NOTE | 2020-09-07 08:03 | Electrocardiogram Report ---
Test Reason : Blood Pressure : / mmHG Vent. Rate : 059 BPM Atrial Rate : 059 BPM P-R Int : 168 ms QRS Dur : 122 ms QT Int : 494 ms P-R-T Axes : 032 -71 -71 degrees QTc Int : 489 ms Sinus bradycardia with sinus arrhythmia Left anterior fascicular block Left ventricular hypertrophy with QRS widening and repolarization abnormality Nonspecific T wave abnormality Inferior leads Nonspecific T wave abnormality Lateral leads Abnormal ECG When compared with ECG of 05-SEP-2020 09:09, T wave inversion now evident in Inferior leads T wave inversion more evident in Lateral leads Confirmed by Heber Zurita ([id number]) on 09/07/2020 8:03:10 AM Referred By: REFERRED SELF Confirmed By:Heber Zurita
--- NOTE | 2020-09-07 08:05 | Electrocardiogram Report ---
Test Reason : Blood Pressure : / mmHG Vent. Rate : 068 BPM Atrial Rate : 068 BPM P-R Int : 168 ms QRS Dur : 120 ms QT Int : 478 ms P-R-T Axes : 042 -74 204 degrees QTc Int : 508 ms Sinus rhythm with marked sinus arrhythmia Left anterior fascicular block Left ventricular hypertrophy with QRS widening and repolarization abnormality Abnormal ECG When compared with ECG of 05-SEP-2020 17:33, No significant change was found Confirmed by Heber Zurita ([id number]) on 09/07/2020 8:05:09 AM Referred By: REFERRED SELF Confirmed By:Heber Zurita
[2020-09-07] MEDS ORDERED: WARFARIN SOD 6 MG TAB PO SCH (16:00)
== END 2020-09-06 14:45 | disposition home or self-care (01) | DRG 247 ==
LOC: ED 09:02 → 2E 09:02 → SUATTDRO 12:04 → 2E 14:58